=== PATIENT | female | born 1950 | race Caucasian/White ===

== ENCOUNTER 2017-12-21 08:45 | Day surgery (SDC) | payer MEDICARE, BC, OTHER ==
[2017-12-21] MEDS: LR 1,000 ML IV ×6 (10:04→18:10)
[2017-12-21] MEDS ORDERED: MIDAZOLAM INJ 2 MG/2 ML VIAL (J2250) As Ordered ×2 (11:42)
[2017-12-21] MEDS ORDERED: fentaNYL 100 MCG/2 ML INJECTION (J3010) As Ordered ×4 (11:43→14:06)
[2017-12-21] MEDS ORDERED: VANCOMYCIN 1000 MG/20 ML VIAL (J3370) As Ordered ×2 (11:48)
[2017-12-21] MEDS: EPINEPHrine 1MG/ML INJ 30ML MD-VIAL As Ordered ×2 (13:19)
[2017-12-21] MEDS: BUPIVACAINE HCL 0.5% 30 ML VIAL As Ordered ×2 (13:19)
[2017-12-21] MEDS ORDERED: ROCURONIUM BROMIDE 50 MG/5 ML VIAL As Ordered ×2 (13:41)
[2017-12-21] MEDS ORDERED: fentaNYL 100 MCG/2 ML INJECTION (J3010) IV ×2 (14:45)
[2017-12-21] MEDS ORDERED: ONDANSETRON 4MG/2ML VIAL (J2405) IV ×2 (14:45)
[2017-12-21] MEDS: PERCOCET 5MG/325MG TAB PO ×6 (14:49→18:30)
[2017-12-21] MEDS ORDERED: hydrALAZINE INJ 20 MG/ML VIAL As Ordered ×2 (15:08)
[2017-12-21] MEDS: hydrALAZINE INJ 20 MG/ML VIAL IV ×4 (15:10→15:15)
[2017-12-21] MEDS ORDERED: PERCOCET 5MG/325MG TAB As Ordered ×2 (15:47)
[2017-12-21] MEDS: VANCOMYCIN HCL 1,000 MG, VIAL MATE ADAPTER 1 EACH in D5W 250 ML IV ×2 (18:10)
[2017-12-21] MEDS ORDERED: PERCOCET 5MG/325MG TAB PO ×2 (18:15)
[2017-12-21] MEDS: PANTOPRAZOLE 40MG TAB (PROTONIX) PO ×2 (21:36)
[2017-12-21] MEDS: traZODone 100 MG TAB PO ×2 (21:36)
[2017-12-21] MEDS: MONTELUKAST 10 MG TAB PO ×2 (21:37)
[2017-12-22] MEDS: PERCOCET 5MG/325MG TAB PO ×4 (00:20→08:18)
[2017-12-22] MEDS: PANTOPRAZOLE 40MG TAB (PROTONIX) PO ×2 (08:17)
== END 2017-12-22 11:09 | disposition home or self-care (01) ==
LOC: M SDC 08:45 → M MS5PR 17:23
DX: M75.112 Incomplete rotator cuff tear or rupture of left shoulder, not specified as traumatic (principal); M75.42 Impingement syndrome of left shoulder; I10 Essential (primary) hypertension; K57.32 Diverticulitis of large intestine without perforation or abscess without bleeding; K21.9 Gastro-esophageal reflux disease without esophagitis; R06.02 Shortness of breath; E16.2 Hypoglycemia, unspecified; Z79.899 Other long term (current) drug therapy; Z88.0 Allergy status to penicillin; Z88.8 Allergy status to other drugs, medicaments and biological substances; Z91.030 Bee allergy status
CPT/HCPCS: 29823

== ENCOUNTER 2018-04-08 07:15 | Day surgery (SDC) | payer MEDICARE, BC, OTHER ==
[2018-04-08] MEDS ORDERED: dexameTHASONE 10 MG/1 ML VIAL PRES.FREE (J1100) (07:16)
[2018-04-08] MEDS ORDERED: ROPIvacaine 0.5% 30 ML INJECTION (J2795 PER 1MG) (07:16)
[2018-04-08] MEDS: LR 1,000 ML IV (08:29)
[2018-04-08] MEDS ORDERED: fentaNYL 100 MCG/2 ML INJECTION (J3010) As Ordered ×2 (09:14→09:37)
[2018-04-08] MEDS ORDERED: MIDAZOLAM INJ 2 MG/2 ML VIAL (J2250) As Ordered ×2 (09:14→09:37)
[2018-04-08] MEDS: VANCOMYCIN HCL 1,000 MG, VIAL MATE ADAPTER 1 EACH in D5W 250 ML IV (09:30)
[2018-04-08] MEDS ORDERED: ROCURONIUM BROMIDE 50 MG/5 ML VIAL As Ordered (09:36)
[2018-04-08] MEDS ORDERED: METOCLOPRAMIDE INJ 10MG/2ML VIAL (J2765) As Ordered (09:36)
[2018-04-08] MEDS ORDERED: LIDOCAINE 2% INJ 100 MG/5 ML SDV (FOR ANES.) As Ordered (09:36)
[2018-04-08] MEDS ORDERED: PROPOFOL 200 MG/20 ML VIAL As Ordered (09:36)
[2018-04-08] MEDS: MIDAZOLAM INJ 2 MG/2 ML VIAL (J2250) IV ×2 (09:42→09:44)
[2018-04-08] MEDS: fentaNYL 100 MCG/2 ML INJECTION (J3010) IV ×2 (09:42→09:46)
[2018-04-08] MEDS ORDERED: ePHEDrine SULFATE 25 MG/5 ML(5MG/ML) SYRINGE As Ordered (10:48)
[2018-04-08] MEDS ORDERED: PHENYLEPHRINE INJ 10MG/ML VIAL (J2370) As Ordered (11:18)
[2018-04-08] MEDS: EPINEPHrine 1MG/ML INJ 30ML MD-VIAL As Ordered (11:23)
[2018-04-08] MEDS ORDERED: PHENYLephrine HCL 500 MCG/5 ML (100MCG/ML) SYRINGE (J2370) As Ordered (11:48)
[2018-04-08] MEDS ORDERED: ONDANSETRON 4MG/2ML VIAL (J2405) As Ordered (11:49)
[2018-04-08] MEDS ORDERED: GLYCOPYRROLATE INJ 0.2 MG/ML 2 ML VIAL As Ordered (11:49)
[2018-04-08] MEDS ORDERED: LR 1,000 ML IV ×2 (12:45)
[2018-04-08] MEDS ORDERED: ONDANSETRON 4MG/2ML VIAL (J2405) IV (12:45)
[2018-04-08] MEDS ORDERED: fentaNYL 100 MCG/2 ML INJECTION (J3010) IV (12:45)
== END 2018-04-08 14:00 | disposition home or self-care (01) ==
LOC: M SDC 07:15
DX: M75.112 Incomplete rotator cuff tear or rupture of left shoulder, not specified as traumatic (principal); M24.612 Ankylosis, left shoulder; I10 Essential (primary) hypertension; K21.9 Gastro-esophageal reflux disease without esophagitis; J44.9 Chronic obstructive pulmonary disease, unspecified; Z87.891 Personal history of nicotine dependence; Z88.0 Allergy status to penicillin; Z91.030 Bee allergy status; Z88.8 Allergy status to other drugs, medicaments and biological substances; Z79.899 Other long term (current) drug therapy
CPT/HCPCS: 29825

== ENCOUNTER → 2024-01-22 | Outpatient (CLI) | payer MEDICARE, BC ==
[~2024-01-22] MED LIST: BYST5TAB2 PO; ISOVUE-300 61% 100ML VIAL As Ordered ONE; LIDOCAINE 1% MDV 20ML VIAL As Ordered ONE; LINZ72CA PO; MONT-5 PO; OXYC1TAB23 PO; PANT40TA29 PO; PROAAER10 INH; TRAZ-257 PO; TRIAMCINOLONE ACETONIDE SUSP 40MG/ML 1ML VIAL As Ordered ONE; VITA100067 PO; ZYRT10CA PO
== END ==
LOC: M RAD 14:32
PROVIDERS: ATTEND Orthopaedic Surgery
DX: M16.11 Unilateral primary osteoarthritis, right hip (principal)
CPT/HCPCS: 20610; 77002; J3301; Q9967